=== PATIENT | male | born 1955 | race Two or more races ===

== ENCOUNTER 2017-03-18 14:44 | Outpatient (CLI) | payer BC ==
[2017-03-18 15:20] LABS: BASOPHILS # (AUTO) 0.1 /CMM (0.0-0.2); BASOPHILS % (AUTO) 1.4 % (0.0-2.0); EOSINOPHILS # (AUTO) 0.2 /CMM (0.0-0.7); EOSINOPHILS % (AUTO) 2.9 % (0.0-6.0); HEMATOCRIT 45 % (39-51); HEMOGLOBIN 14.9 g/dL (13.5-17.5); LYMPHOCYTES # (AUTO) 1.5 /CMM (0.8-4.8); LYMPHOCYTES % (AUTO) 24.5 % (20.0-44.0); MEAN CORPUSCULAR HEMOGLOBIN 30 PG (26.0-33.0); MEAN CORPUSCULAR HGB CONC 33 g/dl (31.0-36.0); MEAN CORPUSCULAR VOLUME 91 fL (80-96); MONOCYTES # (AUTO) 0.5 /CMM (0.1-1.30); MONOCYTES % (AUTO) 8.6 % (2.0-12.0); NEUTROPHILS # (AUTO) 3.8 /CMM (1.8-8.9); NEUTROPHILS % (AUTO) 62.6 % (43.0-81.0); PLATELET COUNT (AUTO) 305 /CMM (150-450); RDW COEFFICIENT OF VARIATION 13.1 (11.5-15.0); RED BLOOD CELL COUNT(AUTO) 4.93 MIL/uL (4.5-6.0); WHITE BLOOD COUNT (AUTO) 6.1 K/uL (4.3-11.0)
[2017-03-18 15:22] LABS: APPEARANCE,URINE CLEAR (CLEAR); BILIRUBIN,URINE NEGATIVE (NEGATIVE); BLOOD, URINE NEGATIVE Ery/uL (NEGATIVE); COLOR,URINE YELLOW (YELLOW); KETONES,URINE NEGATIVE (NEGATIVE); LEUKOCYTE ESTERASE ,URINE NEGATIVE (NEGATIVE); NITRITE, URINE NEGATIVE (NEGATIVE); PH,URINE 5.5 (5.0-8.0); PROTEIN,URINE NEGATIVE (NEGATIVE); UGLUCOSE NEGATIVE (NEGATIVE); UROBILINOGEN,URINE 0.2 EU/dL (0.2)
[2017-03-18 15:40] LABS: ALBUMIN 4.7 g/dL (3.4-5.0); BILIRUBIN,TOTAL 0.3 mg/dL (0.2-1.0); CALCIUM, SERUM 10.5 mg/dL (8.5-10.1); CREATININE 1.7 mg/dL (0.6-1.3); POTASSIUM 5.5 mmol/L (3.5-5.1)
[2017-03-18 15:57] LABS: THYROID STIMULATING HORMONE 2.505 uIU/mL (0.358-3.74); URIC ACID 7.4 mg/dL (2.6-7.2)
== END 2017-03-18 23:59 | disposition home or self-care (01) ==
LOC: LAB 14:44
PROVIDERS: ATTEND Legal Medicine
DX: Z00.01 Encounter for general adult medical examination with abnormal findings (principal); E78.00 Pure hypercholesterolemia, unspecified; I10 Essential (primary) hypertension; N40.0 Benign prostatic hyperplasia without lower urinary tract symptoms
CPT/HCPCS: 36415; 80053-TC; 80061-TC; 81000-TC; 82746; 83550-TC; 84153-TC; 84402-TC; 84439-TC; 84443-TC; 84550-TC; 85025-TC

== ENCOUNTER 2017-03-24 11:56 | Outpatient (CLI) | payer BC | END 2017-03-24 23:59 | disposition home or self-care (01) | LOC: MRI 11:56 | PROVIDERS: ATTEND Legal Medicine | DX: M50.323 Other cervical disc degeneration at C6-C7 level (principal); M48.02 Spinal stenosis, cervical region | CPT/HCPCS: 72141-TC ==

== ENCOUNTER 2017-07-24 12:26 | Outpatient (CLI) | payer BC | END 2017-07-24 23:59 | disposition home or self-care (01) | LOC: MRI 12:26 | PROVIDERS: ATTEND Legal Medicine | DX: S43.402A Unspecified sprain of left shoulder joint, initial encounter (principal); M67.412 Ganglion, left shoulder; X58.XXXA Exposure to other specified factors, initial encounter; Y93.89 Activity, other specified; Y92.89 Other specified places as the place of occurrence of the external cause; Y99.8 Other external cause status | CPT/HCPCS: 73221-TC ==

== ENCOUNTER 2017-09-22 14:28 | Outpatient (CLI) | payer BC ==
[2017-09-22 14:50] LABS: BASOPHILS # (AUTO) 0.1 /CMM (0.0-0.2); EOSINOPHILS % (AUTO) 3.3 % (0.0-6.0); HEMATOCRIT 44 % (39-51); HEMOGLOBIN 14.8 g/dL (13.5-17.5); LYMPHOCYTES # (AUTO) 1.9 /CMM (0.8-4.8); LYMPHOCYTES % (AUTO) 25.4 % (20.0-44.0); MEAN CORPUSCULAR HGB CONC 34 g/dl (31.0-36.0); MEAN CORPUSCULAR VOLUME 89 fL (80-96); MONOCYTES # (AUTO) 0.6 /CMM (0.1-1.30); MONOCYTES % (AUTO) 8.3 % (2.0-12.0); NEUTROPHILS # (AUTO) 4.5 /CMM (1.8-8.9); PLATELET COUNT (AUTO) 245 /CMM (150-450); RDW COEFFICIENT OF VARIATION 13.5 (11.5-15.0); RED BLOOD CELL COUNT(AUTO) 4.91 MIL/uL (4.5-6.0); WHITE BLOOD COUNT (AUTO) 7.3 K/uL (4.3-11.0)
[2017-09-22 15:05] LABS: APPEARANCE,URINE CLEAR (CLEAR); BILIRUBIN,URINE NEGATIVE (NEGATIVE); BLOOD, URINE NEGATIVE Ery/uL (NEGATIVE); COLOR,URINE YELLOW (YELLOW); KETONES,URINE NEGATIVE (NEGATIVE); LEUKOCYTE ESTERASE ,URINE NEGATIVE (NEGATIVE); NITRITE, URINE NEGATIVE (NEGATIVE); PH,URINE 5.5 (5.0-8.0); PROTEIN,URINE NEGATIVE (NEGATIVE); UGLUCOSE NEGATIVE (NEGATIVE); UROBILINOGEN,URINE 0.2 EU/dL (0.2)
[2017-09-22 15:09] LABS: ALBUMIN 3.9 g/dL (3.4-5.0); BILIRUBIN,TOTAL 0.3 mg/dL (0.2-1.0); CALCIUM, SERUM 9.5 mg/dL (8.5-10.1); CREATININE 1.7 mg/dL (0.6-1.3); POTASSIUM 4.4 mmol/L (3.5-5.1); TOTAL PROTEIN, SERUM 8.2 g/dL (6.4-8.2)
[2017-09-22 15:10] LABS: INR 0.94 (0.87-1.13)
== END 2017-09-22 23:59 | disposition home or self-care (01) ==
LOC: LAB 14:28
PROVIDERS: ATTEND Legal Medicine
DX: I70.0 Atherosclerosis of aorta (principal); N39.0 Urinary tract infection, site not specified; R53.1 Weakness; I10 Essential (primary) hypertension; D64.9 Anemia, unspecified
CPT/HCPCS: 36415; 71046; 80053-TC; 81000-TC; 85025-TC; 85730-TC

== ENCOUNTER 2017-09-30 04:53 | Day surgery (SDC) | payer BC ==
[~2017-09-30 04:53] MED LIST: CEFAZOLIN SODIUM/DEXTROSE,ISO 50 ML IV ONE
[2017-09-30] MEDS ORDERED: LIDOCAINE 1% INJ 50 ML MDV IJ ONE (05:42)
[2017-09-30] MEDS ORDERED: EPINEPHRINE (1:1000) MDV 30 MG/30ML VIAL ONE (05:42)
[2017-09-30] MEDS ORDERED: FENTANYL PF 250MCG/5ML AMPUL ONE (06:10)
[2017-09-30] MEDS ORDERED: MIDAZOLAM HCL 2 MG/2ML VIAL ONE (06:10)
[2017-09-30] MEDS ORDERED: BUPIVACAINE 0.25% 75 MG/30 ML VIAL ONE (06:40)
[2017-09-30] MEDS ORDERED: BUPIVACAINE MPF 0.75% 30 ML VIAL ONE (06:41)
[2017-09-30] MEDS ORDERED: SUCCINYLCHOLINE CHLORIDE 20 MG/ML VIAL ONE (07:10)
[2017-09-30] MEDS ORDERED: HYDROMORPHONE INJ 2 MG/ML DISP.SYRIN ONE (08:50)
[2017-09-30] MEDS ORDERED: KETOROLAC TROMETHAMINE INJ 30 MG/ML VIAL ONE (09:02)
[2017-09-30 09:49] LABS: MAGNESIUM 1.9 mg/dL (1.8-2.4)
== END 2017-09-30 11:05 | disposition home or self-care (01) ==
LOC: DS 04:53
PROVIDERS: ATTEND Specialist
DX: M75.112 Incomplete rotator cuff tear or rupture of left shoulder, not specified as traumatic (principal); M75.22 Bicipital tendinitis, left shoulder; M19.012 Primary osteoarthritis, left shoulder; S46.112A Strain of muscle, fascia and tendon of long head of biceps, left arm, initial encounter; X58.XXXA Exposure to other specified factors, initial encounter; Y93.89 Activity, other specified; Y92.89 Other specified places as the place of occurrence of the external cause; Y99.9 Unspecified external cause status; E78.2 Mixed hyperlipidemia; I12.9 Hypertensive chronic kidney disease with stage 1 through stage 4 chronic kidney disease, or unspecified chronic kidney disease; N18.3 Chronic kidney disease, stage 3 (moderate); Z79.1 Long term (current) use of non-steroidal anti-inflammatories (NSAID); Z79.899 Other long term (current) drug therapy; M54.12 Radiculopathy, cervical region; M19.90 Unspecified osteoarthritis, unspecified site; K21.9 Gastro-esophageal reflux disease without esophagitis
CPT/HCPCS: 36415; 83735-TC; 84132-TC; 88304-TC; 88305-TC; 88311-TC; A4217; A4606; C1713; J0171; J0330; J0690; J1170; J1885; J2250; J2710; J3010; J3490; Z7610

== ENCOUNTER 2019-03-28 14:27 | Outpatient (CLI) | payer BC ==
[2019-03-28 15:22] LABS: BASOPHILS # (AUTO) 0.1 /CMM (0.0-0.2); BASOPHILS % (AUTO) 0.9 % (0.0-2.0); EOSINOPHILS % (AUTO) 2.6 % (0.0-6.0); HEMATOCRIT 48 % (39-51); LYMPHOCYTES # (AUTO) 1.6 /CMM (0.8-4.8); LYMPHOCYTES % (AUTO) 22.5 % (20.0-44.0); MEAN CORPUSCULAR HGB CONC 34 g/dl (31.0-36.0); MEAN CORPUSCULAR VOLUME 92 fL (80-96); MONOCYTES # (AUTO) 0.5 /CMM (0.1-1.30); MONOCYTES % (AUTO) 7.1 % (2.0-12.0); NEUTROPHILS # (AUTO) 4.7 /CMM (1.8-8.9); NEUTROPHILS % (AUTO) 66.9 % (43.0-81.0); PLATELET COUNT (AUTO) 238 /CMM (150-450); RED BLOOD CELL COUNT(AUTO) 5.17 MIL/uL (4.5-6.0)
[2019-03-28 15:33] LABS: APPEARANCE,URINE CLEAR (CLEAR); BILIRUBIN,URINE NEGATIVE (NEGATIVE); BLOOD, URINE NEGATIVE Ery/uL (NEGATIVE); COLOR,URINE YELLOW (YELLOW); KETONES,URINE NEGATIVE (NEGATIVE); LEUKOCYTE ESTERASE ,URINE NEGATIVE (NEGATIVE); NITRITE, URINE NEGATIVE (NEGATIVE); PROTEIN,URINE NEGATIVE (NEGATIVE); UGLUCOSE NEGATIVE (NEGATIVE); UROBILINOGEN,URINE 0.2 EU/dL (0.2)
[2019-03-28 15:39] LABS: ALBUMIN 4.2 g/dL (3.4-5.0); BILIRUBIN,TOTAL 0.3 mg/dL (0.2-1.0); CALCIUM, SERUM 9.3 mg/dL (8.5-10.1); CREATININE 1.5 mg/dL (0.6-1.3); MAGNESIUM 1.9 mg/dL (1.8-2.4); POTASSIUM 3.9 mmol/L (3.5-5.1); TOTAL PROTEIN, SERUM 8.4 g/dL (6.4-8.2)
[2019-03-28 15:47] LABS: THYROID STIMULATING HORMONE 2.352 uIU/mL (0.358-3.74); URIC ACID 8.2 mg/dL (2.6-7.2)
[2019-03-29 08:06] LABS: FOLIC ACID 19.6 ng/mL (>3.0)
== END 2019-03-28 23:59 | disposition home or self-care (01) ==
LOC: LAB 14:27
PROVIDERS: ATTEND Legal Medicine
DX: Z00.00 Encounter for general adult medical examination without abnormal findings (principal); I12.9 Hypertensive chronic kidney disease with stage 1 through stage 4 chronic kidney disease, or unspecified chronic kidney disease; E11.22 Type 2 diabetes mellitus with diabetic chronic kidney disease; N18.9 Chronic kidney disease, unspecified; E78.00 Pure hypercholesterolemia, unspecified; D64.9 Anemia, unspecified; E03.9 Hypothyroidism, unspecified; E55.9 Vitamin D deficiency, unspecified
CPT/HCPCS: 36415; 80053-TC; 80061-TC; 81000-TC; 82306; 82728-TC; 83540-TC; 83735-TC; 84153-TC; 84402; 84403; 84439-TC; 84443-TC; 84550-TC; 85025-TC

== ENCOUNTER 2020-11-02 14:29 | Outpatient (CLI) | payer BC | END 2020-11-02 23:59 | disposition home or self-care (01) | LOC: MRI 14:29 | PROVIDERS: ATTEND Legal Medicine | DX: M47.22 Other spondylosis with radiculopathy, cervical region (principal); M50.13 Cervical disc disorder with radiculopathy, cervicothoracic region; M48.03 Spinal stenosis, cervicothoracic region; M25.78 Osteophyte, vertebrae | CPT/HCPCS: 72141-TC ==

== ENCOUNTER 2020-12-05 13:55 | Outpatient (CLI) | payer BC | END 2020-12-05 23:59 | disposition home or self-care (01) | LOC: MRI 13:55 | DX: G31.84 Mild cognitive impairment of uncertain or unknown etiology (principal) | CPT/HCPCS: 70551-TC ==

== ENCOUNTER 2021-03-12 13:55 | Outpatient (CLI) | payer BC | END 2021-03-12 23:59 | disposition home or self-care (01) | LOC: MRI 13:55 | PROVIDERS: ATTEND Legal Medicine | DX: M47.27 Other spondylosis with radiculopathy, lumbosacral region (principal); M51.17 Intervertebral disc disorders with radiculopathy, lumbosacral region; M48.07 Spinal stenosis, lumbosacral region; M51.46 Schmorl's nodes, lumbar region | CPT/HCPCS: 72148-TC ==

== ENCOUNTER 2021-12-13 12:45 | Outpatient (CLI) | payer BC | END 2021-12-13 23:59 | disposition home or self-care (01) | LOC: MRI 12:45 | PROVIDERS: ATTEND Legal Medicine | DX: M26.601 Right temporomandibular joint disorder, unspecified (principal); M26.631 Articular disc disorder of right temporomandibular joint; M47.22 Other spondylosis with radiculopathy, cervical region; M25.78 Osteophyte, vertebrae; M48.03 Spinal stenosis, cervicothoracic region; M50.30 Other cervical disc degeneration, unspecified cervical region; M43.12 Spondylolisthesis, cervical region; J32.9 Chronic sinusitis, unspecified | CPT/HCPCS: 70551-TC; 72141-TC ==

== ENCOUNTER → 2022-09-26 | Outpatient (CLI) | payer BC | END | disposition home or self-care (01) | LOC: LAB 10:00 | PROVIDERS: ATTEND Specialist | DX: Z01.812 Encounter for preprocedural laboratory examination (principal); Z20.822 Contact with and (suspected) exposure to COVID-19 | CPT/HCPCS: U0003; C9803 ==

== ENCOUNTER 2022-10-01 07:24 | Day surgery (SDC) | payer BC ==
[2022-10-01] MEDS ORDERED: BUPIVACAINE 0.25% 75 MG/30 ML VIAL ONE (08:53)
[2022-10-01] MEDS ORDERED: KETAMINE HCL (500MG/10ML) 50 MG/ML VIAL ONE (08:56)
[2022-10-01] MEDS ORDERED: FAMOTIDINE/PF INJ 20 MG/2 ML VIAL IV ONE (08:56)
[2022-10-01] MEDS ORDERED: ROCURONIUM BROMIDE 50 MG/5 ML ONE (08:56)
[2022-10-01] MEDS ORDERED: HYDROCODONE/APAP 5/325MG TABLET PO PRN (10:30)
== END 2022-10-01 11:30 | disposition home or self-care (01) ==
LOC: DS 07:24
PROVIDERS: ATTEND Specialist
DX: G56.01 Carpal tunnel syndrome, right upper limb (principal); N18.9 Chronic kidney disease, unspecified
CPT/HCPCS: 64721; J2704; J3490 ×5; J2370; J2765; J1885; J7030; A6402; A4223

== ENCOUNTER 2024-01-13 13:10 | Outpatient (CLI) | payer BC | END 2024-01-13 23:59 | disposition home or self-care (01) | LOC: MRI 13:10 | PROVIDERS: ATTEND Legal Medicine | DX: M50.33 Other cervical disc degeneration, cervicothoracic region (principal); M47.817 Spondylosis without myelopathy or radiculopathy, lumbosacral region; M48.02 Spinal stenosis, cervical region; N28.1 Cyst of kidney, acquired | CPT/HCPCS: 72141-TC; 72148-TC ==

== ENCOUNTER 2024-03-10 04:58 | Inpatient (IN) | payer BC ==
[~2024-03-10] VITALS: Ht 172.7 cm; Wt 68.9 kg
[2024-03-10 06:21] VITALS: BP 118/72; TEMP 98.2
[2024-03-10] MEDS ORDERED: GELATIN SPONGE,ABSORBABLE 1 EA SPONGE TP ONE (06:21)
[2024-03-10] MEDS ORDERED: HEMOSTATIC MATRIX 8 ML 1 EACH PAD MC ONE (06:21)
[2024-03-10] MEDS ORDERED: ANESTHESIA TRAY IN PYXIS 1 EA TRAY MC ONE (06:21)
[2024-03-10] MEDS ORDERED: BUPIVACAINE 0.5 % PF 150 MG/30 ML VIAL ONE (06:22)
[2024-03-10] MEDS ORDERED: BUPIVACAINE MPF 0.5% W/EPI INJ 30 ML VIAL ONE (06:22)
[2024-03-10] MEDS ORDERED: LIDOCAINE HCL/MPF 1% 30 ML VIAL IJ ONE (06:22)
[2024-03-10] MEDS ORDERED: CELLULOSE,OXIDIZED 1 EACH EACH MC ONE (06:22)
[2024-03-10] MEDS ORDERED: LIDOCAINE 1%-EPI 1:100,000 20 ML VIAL ONE (06:22)
[2024-03-10] MEDS ORDERED: HEPARIN SODIUM, PORCINE 5000 UNITS/1 ML VIAL ONE (06:34)
[2024-03-10] MEDS ORDERED: ROCURONIUM BROMIDE 50 MG/5 ML ONE (07:00)
[2024-03-10] MEDS ORDERED: FENTANYL PF 250MCG/5ML AMPUL ONE (07:00)
[2024-03-10] MEDS ORDERED: BUPIVACAINE 0.25% 75 MG/30 ML VIAL ONE (07:22)
[2024-03-10] MEDS ORDERED: CEFAZOLIN 1 GM ONE (08:27)
[2024-03-10] MEDS ORDERED: VANCOMYCIN 1 GM VIAL ONE (08:27)
[2024-03-10] MEDS ORDERED: TRANEXAMIC ACID 1,000 MG/10 ML VIAL ONE ×2 (08:27→08:42)
[2024-03-10] MEDS ORDERED: SEVOFLURANE 250 ML BOTTLE IH ONE (08:51)
[2024-03-10] MEDS ORDERED: LABETALOL HCL IV 100MG VIAL ONE (08:58)
[2024-03-10] MEDS ORDERED: THROMBIN (BOVINE) 20,000 UNITS SPRAY KIT TP ONE (09:56)
[2024-03-10] MEDS ORDERED: FENTANYL PF 100MCG/2ML AMPUL ONE (13:28)
[2024-03-10] MEDS ORDERED: ONDANSETRON HCL/PF 4 MG/2 ML VIAL IV PRN (15:00)
[2024-03-10] MEDS: MORPHINE SULFATE INJ 2 MG/ML DISP.SYRIN IV PRN ×2 (15:05→16:11)
[2024-03-10] MEDS ORDERED: MAGNESIUM HYDROXIDE 30 ML UDC PO PRN (16:00)
[2024-03-10] MEDS ORDERED: Z GUARD REMEDY 4 OZ OINT TP PRN (16:00)
[2024-03-10] MEDS ORDERED: ACETAMINOPHEN 325 MG TABLET PO PRN (16:00)
[2024-03-10] MEDS ORDERED: MAG HYDROX/AL HYDROX/SIMETH 30 ML UDC PO PRN (16:00)
[2024-03-10] MEDS ORDERED: MORPHINE SULFATE INJ 4 MG/ML DISP.SYRIN IM PRN (16:30)
[2024-03-10] MEDS ORDERED: SIMV-46 PO (17:56)
[2024-03-10] MEDS ORDERED: ALLO100T PO (17:56)
[2024-03-10] MEDS ORDERED: FLUO30CR11 TP (17:56)
[2024-03-10] MEDS ORDERED: FLUT16SP BNOSTRILS (17:56)
[2024-03-10] MEDS ORDERED: OMEP40CA21 PO (17:56)
[2024-03-10] MEDS ORDERED: CELE200C PO (17:56)
[2024-03-10] MEDS ORDERED: LISI10TA29 PO (17:56)
[2024-03-10] MEDS ORDERED: TRAM50TA2 PO (17:56)
[2024-03-10] MEDS: MORPHINE SULFATE INJ 4 MG/ML DISP.SYRIN IV PRN (19:21)
[2024-03-10 20:00] VITALS: BP 132/70; TEMP 98.2; O2SAT 99
[2024-03-10] MEDS: HYDROCODONE/APAP 5/325MG TABLET PO PRN (23:20)
[2024-03-11] MEDS: ONDANSETRON HCL/PF 4 MG/2 ML VIAL IVP PRN (06:20)
[2024-03-11 06:39] LABS: BASOPHILS % (AUTO) 0.1 % (0.0-2.0); HEMATOCRIT 34 % (39-51); HEMOGLOBIN 11.4 g/dL (13.5-17.5); LYMPHOCYTES % (AUTO) 7.6 % (20.0-44.0); MEAN CORPUSCULAR HEMOGLOBIN 32 PG (26.0-33.0); MEAN CORPUSCULAR HGB CONC 34 g/dl (31.0-36.0); MEAN CORPUSCULAR VOLUME 95 fL (80-96); MONOCYTES # (AUTO) 1.2 K/uL (0.1-1.30); MONOCYTES % (AUTO) 9.8 % (2.0-12.0); NEUTROPHILS # (AUTO) 10.3 K/uL (1.8-8.9); NEUTROPHILS % (AUTO) 82.5 % (43.0-81.0); PLATELET COUNT (AUTO) 235 K/uL (150-450); RED CELL DISTRIBUTION WIDTH 13.1 % (11.5-15.0); WHITE BLOOD COUNT (AUTO) 12.6 K/uL (4.3-11.0)
[2024-03-11 06:43] LABS: CALCIUM, SERUM 8.8 mg/dL (8.5-10.1); CREATININE 1.4 mg/dL (0.6-1.3); MAGNESIUM 1.8 mg/dL (1.8-2.4); PHOSPHORUS 3.6 mg/dL (2.5-4.9); POTASSIUM 3.8 mmol/L (3.5-5.1)
[2024-03-11] MEDS: PANTOPRAZOLE 40 MG TABLET.DR PO SCH (07:38)
[2024-03-11 08:28] VITALS: BP 126/58; TEMP 98.4; O2SAT 94
[2024-03-11] MEDS: MENTHOL/CETYLPYRD (CEPACOL) 1 LOZ LOZENGE PO PRN (10:24)
[2024-03-11] MEDS: CELECOXIB 100 MG CAPSULE PO SCH (12:39)
[2024-03-11] MEDS: ALLOPURINOL 100 MG TABLET PO SCH (12:39)
[2024-03-11] MEDS: LISINOPRIL (10MG) 10 MG TABLET PO SCH (12:40)
[2024-03-11] MEDS: FLUOCINONIDE 0.05% CREAM 60 GM TUBE TP SCH (12:45)
[2024-03-11] MEDS: FLUTICASONE PROPIONATE 16 GM BOTTLE NS SCH (16:18)
[2024-03-11 16:28] VITALS: BP 132/65; TEMP 98.2; O2SAT 98
[2024-03-11] MEDS: SIMVASTATIN 20 MG TABLET PO SCH (17:16)
[2024-03-11 20:00] VITALS: BP 131/64; TEMP 98.4; O2SAT 98
[2024-03-11 20:40] VITALS: BP 131/64; TEMP 98.4; O2SAT 98
[2024-03-12 06:33] LABS: BASOPHILS % (AUTO) 0.2 % (0.0-2.0); EOSINOPHILS % (AUTO) 0.5 % (0.0-6.0); HEMATOCRIT 34 % (39-51); HEMOGLOBIN 11.2 g/dL (13.5-17.5); LYMPHOCYTES # (AUTO) 1.5 K/uL (0.8-4.8); LYMPHOCYTES % (AUTO) 14.8 % (20.0-44.0); MEAN CORPUSCULAR HEMOGLOBIN 32 PG (26.0-33.0); MEAN CORPUSCULAR HGB CONC 33 g/dl (31.0-36.0); MEAN CORPUSCULAR VOLUME 95 fL (80-96); MONOCYTES # (AUTO) 1.2 K/uL (0.1-1.30); MONOCYTES % (AUTO) 11.7 % (2.0-12.0); NEUTROPHILS # (AUTO) 7.2 K/uL (1.8-8.9); NEUTROPHILS % (AUTO) 72.8 % (43.0-81.0); PLATELET COUNT (AUTO) 219 K/uL (150-450); RED BLOOD CELL COUNT(AUTO) 3.56 MIL/uL (4.5-6.0); RED CELL DISTRIBUTION WIDTH 13.5 % (11.5-15.0); WHITE BLOOD COUNT (AUTO) 9.9 K/uL (4.3-11.0)
[2024-03-12 06:42] LABS: CREATININE 1.3 mg/dL (0.6-1.3); POTASSIUM 3.8 mmol/L (3.5-5.1)
[2024-03-12 08:40] VITALS: BP 153/71
[2024-03-12] MEDS: GUAIFENESIN/D-METHORPHAN HB 5 ML UDC PO PRN (08:55)
== END 2024-03-12 14:39 | disposition home health service (06) | DRG 472 ==
LOC: DS 04:58 → MED 05:00
PROVIDERS: ADMIT Nurse Practitioner Family; ATTEND Nurse Practitioner Family
PROC: 0RB30ZZ Excision of Cervical Vertebral Disc, Open Approach (ICD-10-PCS; principal; 2024-03-10)
PROC: 0RG20A0 Fusion of 2 or more Cervical Vertebral Joints with Interbody Fusion Device, Anterior Approach, Anterior Column, Open Approach (ICD-10-PCS; 2024-03-10)
PROC: 0RR30JZ Replacement of Cervical Vertebral Disc with Synthetic Substitute, Open Approach (ICD-10-PCS; 2024-03-10)
DX: M50.11 Cervical disc disorder with radiculopathy, high cervical region (principal); G95.20 Unspecified cord compression; M50.01 Cervical disc disorder with myelopathy, high cervical region; N17.9 Acute kidney failure, unspecified; Z98.890 Other specified postprocedural states; Z79.51 Long term (current) use of inhaled steroids; Z79.899 Other long term (current) drug therapy; M48.02 Spinal stenosis, cervical region; D64.9 Anemia, unspecified; E78.5 Hyperlipidemia, unspecified; R73.9 Hyperglycemia, unspecified; I10 Essential (primary) hypertension
CPT/HCPCS: 36415; 72050-TC; 80048-TC; 83735-TC; 84100-TC; 85025-TC; 97110-TC; 97116-TC; 97530-TC; A6209; A6402; C1713; C1889; G0378; J0690; J1644; J2270; J2405; J2704; J3010; J3370; J3490; J7030